=== PATIENT | male | born 2000 | race Two or more races ===

== ENCOUNTER 2023-09-04 09:56 | Emergency (ER) | payer OTHER ==
[~2023-09-04] VITALS: Ht 188 cm; Wt 93.0 kg
[2023-09-04] MEDS ORDERED: DICLOFENAC SODI75 MG PO (11:35)
== END 2023-09-04 12:25 | disposition home or self-care (01) ==
LOC: ER 09:57
DX: S92.911A Unspecified fracture of right toe(s), initial encounter for closed fracture (principal); W22.8XXA Striking against or struck by other objects, initial encounter; Y93.89 Activity, other specified; Y92.89 Other specified places as the place of occurrence of the external cause
CPT/HCPCS: 73630; 96372; 99284; J1885